=== PATIENT | male | born 1975 | race Two or more races ===

== ENCOUNTER 2020-07-04 16:58 | Emergency (ER) | payer OTHER, SELFPAY ==
[2020-07-04] VITALS (10 sets, daily range): BP systolic 143–212; BP diastolic 85–129; PULSE 68–95; RESP 12–18; TEMP 36.3–37.2; O2SAT 94–96; BMI 34.7
--- NOTE | ~2020-07-04 | CT_ITS ---
EXAMINATION: CT HEAD WITHOUT CONTRAST CLINICAL INFORMATION: Elevated blood pressure. COMPARISON: CT head 07/25/2010 TECHNIQUE: Contiguous axial imaging was performed from the skull base to vertex without intravenous administration of contrast. Coronal and sagittal reformatted images are performed at the CT scanner This CT examination was performed using dose optimization techniques as appropriate, variously including the following: *Automated exposure control *Adjustment of mA and/or kV according to patient size (this includes techniques or standardized protocols for targeted exams where dose is matched to indication/reason for exam; i.e. extremities or head) *Use of iterative reconstruction technique DLP: 741 mGy-cm FINDINGS: There is no evidence of acute intracranial hemorrhage or territorial infarction. No abnormal mass effect or midline shift is seen. [place] to white matter differentiation is well preserved. No extra-axial fluid collections are identified. The ventricles are normal in size. There is no abnormal attenuation within the brain parenchyma. The osseous structures and soft tissues are normal. There is near complete opacification of the ethmoid sinuses and frontal sinuses. There is a small air-fluid level in the right frontal sinus. The right sphenoid sinus is entirely opacified. There is an air-fluid level with mucosal thickening almost entirely opacifying the left sphenoid sinus. There is lobular mucosal thickening of the bilateral maxillary sinuses. CT/CT head/brain wo con IMPRESSION: 1. No acute intracranial abnormality. 2. Sinus disease.
--- NOTE | ~2020-07-04 | XR_ITS ---
EXAMINATION: CHEST 1 VIEW CLINICAL INFORMATION: Cough. COMPARISON: 01/20/2016. TECHNIQUE: An AP view of the chest is provided. FINDINGS: The cardiac silhouette is not enlarged. The mediastinal and hilar contours are unremarkable. There are neither pleural effusions nor pneumothoraces. There are no consolidations. The osseous structures are stable. XR/XR chest 1V IMPRESSION: No evidence for acute disease.
--- NOTE | 2020-07-04 18:15 | ECG_ITS ---
Test Reason : VOMITING Blood Pressure : / mmHG Vent. Rate : 082 BPM Atrial Rate : 082 BPM P-R Int : 160 ms QRS Dur : 096 ms QT Int : 424 ms P-R-T Axes : 048 006 036 degrees QTc Int : 495 ms Normal sinus rhythm Prolonged QT Abnormal ECG When compared with ECG of 03-FEB-2018 10:00, No significant change was found Referred By: Pan Phipps Electronically Signed By:GERA CIFUENTES
--- NOTE | 2020-07-04 18:44 | PC.NURSE ---
ALDAIR COLON AWARE OF PATIENT HIGH BLOOD PRESSURE , PATIENT WAS PUT ON EVENTS ADMINISTRATIVE ASSISTANT BY THIS PCT .
[2020-07-04 19:03] LABS: MANUAL DIFF FLAG NO
[2020-07-04 19:05] LABS: Basophils Percent Auto 0.5 % (0-2); Eosinophils Absolute Auto 0.4 X10*3/uL (0.0-0.4); Eosinophils Percent Auto 4.7 % (0-4); Hematocrit 44.9 % (42-52); Imm Gran Abs Auto 0.02 X10*3/uL (0.00-0.03); Imm Gran Pct Auto 0.3 % (0.0-0.4); Lymphocytes Absolute Auto 2.7 X10*3/uL (1.2-4.9); Lymphocytes Percent Auto 34.4 % (20-40); Mean Corpuscular HGB Conc 33.4 g/dl (31.0-36.0); Mean Corpuscular Hemoglobin 30.8 pg (27.0-33.0); Mean Corpuscular Volume 92.2 fL (80-98); Mean Platelet Volume 9.6 fL (9.4-12.4); Monocytes Absolute Auto 0.7 X10*3/uL (0.1-1.2); Monocytes Percent Auto 8.7 % (2-11); Neutrophils Absolute Auto 4.1 X10*3/uL (2.0-8.3); Neutrophils Percent Auto 51.4 % (45-73); Platelet Count 220 X10*3/uL (160-400); Red Blood Count 4.87 X10*6/uL (4.60-5.80); Red Cell Distribution Width 12.3 % (11.0-16.0); White Blood Count 7.9 X10*3/uL (4.8-10.8)
[2020-07-04 19:10] LABS: INTERNATIONAL NORM RATIO 0.9 (0.9-1.1); Prothrombin Time 11.2 SEC (10.8-13.0)
--- NOTE | 2020-07-04 19:11 | ED_ITS ---
HPI - General Adult General Chief complaint: Nausea/Vomiting/Diarrhea Stated complaint: Covid exposure,weakness Time Seen by Provider: 07/04/20 18:15 Source: patient Mode of arrival: ambulatory Limitations: no limitations History of Present Illness HPI narrative: Patient presents to ED for weakness, cough, fever, vomiting, and chills for the past 2 days. Patient states he was exposed to a friend was positive for COVID-19 virus. Patient denies any shortness of breath or chest pain. Upon triage patient found to be hypertensive. Patient admits to history of high blood pressure but has been not compliant with medication for years. Patient denies any slurred speech, loss of vision, headache, dizziness, weakn ess, numbness, or paralysis of extremities. Related Data Previous Rx's Medication Instructions Recorded lisinopril 10 mg PO DAILY #30 tab 07/04/20 Allergies Allergy/AdvReac Type Severity Reaction Status Date / Time No Known Allergies Allergy Mild NOT Verified 07/04/20 18:01 APPLICABLE Review of Systems Review of Systems: Yes all other systems are reviewed and are negative Constitutional: Constitutional: Reports as per HPI, Reports no additional constitutional complaints, Reports chills and Reports fever(s) Eyes: Eyes: Reports as per HPI, Reports no additional eye complaints, Denies blind spots, Denies blurry vision, Denies exophthalmos, Denies change in vision, Denies decreased night vision, Denies eye discharge, Denies dry eyes, Denies john aters, Denies irritation, Denies itchy eyes, Denies loss of peripheral vision, Denies loss of vision, Denies requires corrective lenses, Denies seeing flashes, Denies photophobia and Denies spots in vision ENT: Reports system reviewed and no additional complaints, except as documented and Reports as per HPI Cardiovascular: Cardiovascular: Reports as per HPI, Reports no additional cardiovascular complaints, Denies chest pain, Denies dyspnea and Denies dyspnea on exertion Respiratory: Respiratory: Reports as per HPI, Reports no additional respiratory complaints, Reports cough, Denies dyspnea and Denies dyspnea on exertion Gastrointestinal: Gastrointestinal: Reports as per HPI and Reports no additional gastrointestinal complaints Genitourinary: Genitourinary: Reports no additional male genitourinary complaints and Reports as per HPI Musculoskeletal: Musculoskeletal: Reports no additional musculoskeletal complaints and Reports as per HPI Neurologic: Reports system reviewed and no additional complaints, except as documented, Reports as per HPI and Denies loss of vision Psychiatric: Psychiatric: Reports no additional psychiatric complaints and Reports as per HPI Allergic/Immunologic: Allergic/Immunologic: Denies itchy eyes PMFSH Past Medical History Medical History (Updated 07/04/20 @ 22:52 by TONNY Ch) Hypertension Social History Social History Advance Directives: No Advance Directives Information Provided: Yes Physical Exam Vital Signs: Vital Signs: Last Vital Signs Temp 97.4 F 07/04/20 21:50 Pulse 68 07/04/20 21:50 Resp 15 07/04/20 21:50 BP 143/105 H 07/04/20 21:50 Pulse Ox 96 07/04/20 21:50 Body Mass Index 34.7 Const: General: cooperative, healthy appearing, comfortable, no acute distress, well developed, alert, awake and Physically active Orientation/consciousness: patient oriented x3 HENMT: Head: Yes normal to inspection, Yes No palpable skull fracture present, Yes normocephalic, Yes atraumatic, Yes abrasion, No Solitario's sign, No contusion, No cranial bruits, No hematoma, No occipital foramen tenderness, No palpable skull fracture, No raccoon eyes, No scalp lesion, No scalp tenderness, No Temporal artery tenderness present and No periorbital ecchymosis Eyes: General: appearance normal, both eyes and all related structures Direct Ophthalmoscopy: No photophobia Neck: Neck: Yes normal visual inspection, Yes full ROM, Yes no lymph adenopathy, Yes no meningeal signs, Yes trachea midline, Yes supple and No tender Chest: Chest palpation & inspection: normal inspection of the chest and normal palpation of entire chest wall Resp: Effort & Inspection: normal respiratory effort and able to speak in complete sentences Auscultation: clear to auscultation bilaterally Cardio: Jugular venous distension: no JVD Heart sounds: S1 normal heart sound present and S2 normal heart sound present GI: Inspection: Yes normal to inspection Palpation (GI): Soft to palpation, not firm, nontender, no guarding and not rigid : General: No CVA tenderness and Yes no CVA tenderness Back/Spine/Pelvis: Back: no CVA tenderness, No CVA tenderness and No back tenderness Skin: General skin exam: no rashes or lesions noted and elasticity normal Neuro: Other: Negative for slurred speech. Negative for facial droop. Negative pronator drift. All extremities are equal and intact 5+. Rapid hand movement intact. Negative Romberg General: patient oriented x3, no meningeal s igns and CN's II-XI intact bilaterally Cranial nerves: Yes CN's II-XII intact bilaterally Extrem: General: Yes normal to inspection and Yes full ROM Psych: Appearance: grossly normal, well kempt and not disheveled Course Course Course Narrative: Patient not in any respiratory distress but due to elevated blood pressure will do basic labs to make sure there is no hypertensive emergency. Patient will have EKG, troponin, head CT, and kidney function evaluation. Patient also had COVID swab and chest x-ray ordered. Patient also be given clonidine. NIH score 0 Reevaluation(s) Reevaluation #1: Patient's COVID swab negative. Patient EKG negative STEMI. Head CT negative for STEMI. His troponin 7.5. Blood pressure still elevated after clonidine. Will give captopril oral. Patient presently still neuro intact. Negative for any neuro deficit. Hypertensive urgency. Reevaluation #2: Patient's presently asymptomatic and neuro exam is intact. Patient's blood pressure improved. Admission was discussed due to patient's initial elevated blood pressure although presently is improved. Patient refused admission would like to be prescribed hypertensive medication follow-up with PCP. Awaiting 2nd troponin. Neuro exam is intact. Negative for any neuro focal deficit Reevaluation #3: Second troponin did not increased by 50%. Patient to be discharged with lisinopril 10 mg as discussed with Dr. Stubbs. COVID swab came back negative Medical Decision Making MDM Narrative Medical decision making narrative: Viral syndrome. Hypertension Lab Data Result diagrams: 07/04/20 18:55 07/04/20 18:55 Labs: Lab Results 07/04/20 07/04/20 07/04/20 Range/Units 18:55 18:55 18:55 WBC 7.9 (4.8-10.8) X10*3/uL RBC 4.87 (4.60-5.80) X10*6/uL Hgb 15.0 (14.0-18.0) g/dl Hct 44.9 (42-52) % MCV 92.2 (80-98) fL MCH 30.8 (27.0-33.0) pg MCHC 33.4 (31.0-36.0) g/dl RDW 12.3 (11.0-16.0) % Plt Count 220 (160-400) X10*3/uL MPV 9.6 (9.4-12.4) fL Immature Gran % (Auto) 0.3 (0.0-0.4) % Neut % (Auto) 51.4 (45-73) % Lymph % (Auto) 34.4 (20-40) % [place] % (Auto) 8.7 (2-11) % Eos % (Auto) 4.7 H (0-4) % Baso % (Auto) 0.5 (0-2) % Lymph # (Auto) 2.7 (1.2-4.9) X10*3/uL [place] # (Auto) 0.7 (0.1-1.2) X10*3/uL Eos # (Auto) 0.4 (0.0-0.4) X10*3/uL Baso # (Auto) 0.0 (0.0-0.2) X10*3/uL Abs Immat Gran (auto) 0.02 (0.00-0.03) X10*3/uL Absolute Neuts (auto) 4.1 (2.0-8.3) X10*3/uL Absolute Nucleated RBC 0.000 (0.0-0.012) X10*3/uL Nucleated RBC % (auto) 0.0 (0.0-0.2) /100WBC PT 11.2 (10.8-13.0) SEC INR 0.9 (0.9-1.1) APTT 37.5 (24.1-38.0) SEC Sodium 141 (135-145) mmol/L Potassium 4.1 (3.3-5.1) mmol/L Chloride 104 (96-108) mmol/L Carbon Dioxide 27 (22-29) mmol/L Anion Gap 14 (12-20) BUN 14 (9-16) mg/dL Creatinine 1.09 (0.5-1.4) mg/dL Estim Creat Clear Calc 109.5 Estimated GFR > 60 Random Glucose 128 H (60-115) mg/dL Calcium 8.8 (8.4-10.2) mg/dL Ferritin 165 (20-250) ng/mL Total Bilirubin 0.4 (0.0-1.0) mg/dL Direct Bilirubin < 0.2 (0.0-0.5) mg/dL AST 22 (5-37) U/L ALT 30 (0-40) U/L Alkaline Phosphatase 85 (39-117) U/L Lactate Dehydrogenase 198 (118-273) U/L Troponin I High Sens (<3.5-35.0) ng/L Total Protein 7.0 (6.5-8.0) g/dL Albumin 3.9 (3.5-5.0) g/dL Lipase 46 (8-78) U/L Procalcitonin ng/mL Coronavirus (PCR) (Negative) Influenza Type A (PCR) (Negative) Influenza Type B (PCR) (Negative) RSV RNA Qual (PCR) (Negative) 07/04/20 07/04/20 07/04/20 Range/Units 18:55 18:55 18:55 WBC (4.8-10.8) X10*3/uL RBC (4.60-5.80) X10*6/uL Hgb (14.0-18.0) g/dl Hct (42-52) % MCV (80-98) fL MCH (27.0-33.0) pg MCHC (31.0-36.0) g/dl RDW (11.0-16.0) % Plt Count (160-400) X10*3/uL MPV (9.4-12.4) fL Immature Gran % (Auto) (0.0-0.4) % Neut % (Auto) (45-73) % Lymph % (Auto) (20-40) % [place] % (Auto) (2-11) % Eos % (Auto) (0-4) % Baso % (Auto) (0-2) % Lymph # (Auto) (1.2-4.9) X10*3/uL [place] # (Auto) (0.1-1.2) X10*3/uL Eos # (Auto) (0.0-0.4) X10*3/uL Baso # (Auto) (0.0-0.2) X10*3/uL Abs Immat Gran (auto) (0.00-0.03) X10*3/uL Absolute Neuts (auto) (2.0-8.3) X10*3/uL Absolute Nucleated RBC (0.0-0.012) X10*3/uL Nucleated RBC % (auto) (0.0-0.2) /100WBC PT (10.8-13.0) SEC INR (0.9-1.1) APTT (24.1-38.0) SEC Sodium (135-145) mmol/L Potassium (3.3-5.1) mmol/L Chloride (96-108) mmol/L Carbon Dioxide (22-29) mmol/L Anion Gap (12-20) BUN (9-16) mg/dL Creatinine (0.5-1.4) mg/dL Estim Creat Clear Calc Estimated GFR Random Glucose (60-115) mg/dL Calcium (8.4-10.2) mg/dL Ferritin (20-250) ng/mL Total Bilirubin (0.0-1.0) mg/dL Direct Bilirubin (0.0-0.5) mg/dL AST (5-37) U/L ALT (0-40) U/L Alkaline Phosphatase (39-117) U/L Lactate Dehydrogenase (118-273) U/L Troponin I High Sens 7.3 (<3.5-35.0) ng/L Total Protein (6.5-8.0) g/dL Albumin (3.5-5.0) g/dL Lipase (8-78) U/L Procalcitonin 0.03 ng/mL Coronavirus (PCR) NEGATIVE (Negative) Influenza Type A (PCR) NEGATIVE (Negative) Influenza Type B (PCR) NEGATIVE (Negative) RSV RNA Qual (PCR) NEGATIVE (Negative) 07/04/20 Range/Units 21:37 WBC (4.8-10.8) X10*3/uL RBC (4.60-5.80) X10*6/uL Hgb (14.0-18.0) g/dl Hct (42-52) % MCV (80-98) fL MCH (27.0-33.0) pg MCHC (31.0-36.0) g/dl RDW (11.0-16.0) % Plt Count (160-400) X10*3/uL MPV (9.4-12.4) fL Immature Gran % (Auto) (0.0-0.4) % Neut % (Auto) (45-73) % Lymph % (Auto) (20-40) % [place] % (Auto) (2-11) % Eos % (Auto) (0-4) % Baso % (Auto) (0-2) % Lymph # (Auto) (1.2-4.9) X10*3/uL [place] # (Auto) (0.1-1.2) X10*3/uL Eos # (Auto) (0.0-0.4) X10*3/uL Baso # (Auto) (0.0-0.2) X10*3/uL Abs Immat Gran (auto) (0.00-0.03) X10*3/uL Absolute Neuts (auto) (2.0-8.3) X10*3/uL Absolute Nucleated RBC (0.0-0.012) X10*3/uL Nucleated RBC % (auto) (0.0-0.2) /100WBC PT (10.8-13.0) SEC INR (0.9-1.1) APTT (24.1-38.0) SEC Sodium (135-145) mmol/L Potassium (3.3-5.1) mmol/L Chloride (96-108) mmol/L Carbon Dioxide (22-29) mmol/L Anion Gap (12-20) BUN (9-16) mg/dL Creatinine (0.5-1.4) mg/dL Estim Creat Clear Calc Estimated GFR Random Glucose (60-115) mg/dL Calcium (8.4-10.2) mg/dL Ferritin (20-250) ng/mL Total Bilirubin (0.0-1.0) mg/dL Direct Bilirubin (0.0-0.5) mg/dL AST (5-37) U/L ALT (0-40) U/L Alkaline Phosphatase (39-117) U/L Lactate Dehydrogenase (118-273) U/L Troponin I High Sens 7.7 (<3.5-35.0) ng/L Total Protein (6.5-8.0) g/dL Albumin (3.5-5.0) g/dL Lipase (8-78) U/L Procalcitonin ng/mL Coronavirus (PCR) (Negative) Influenza Type A (PCR) (Negative) Influenza Type B (PCR) (Negative) RSV RNA Qual (PCR) (Negative) ECG Data Interpretation: Normal sinus rhythm. Urine to 160. QTC 495. Negative STEMI Discharge Plan Discharge Clinical Impression: Hypertension Patient Disposition: Home, Self-Care Instructions: Viral Syndrome (ED), Hypertension (ED) Additional Instructions: Return to the ED immediately for any headache, slurred speech, loss of vision, paralysis of extremities, weakness, dizziness, chest pain, shortness of breath, coughing up blood, calf pain, or any other concerning symptoms. Her COVID swab influenza swab came back negative. Symptoms worsen recommend quarantine or retesting in 72 hours. Please follow-up with PCP. Prescriptions: New lisinopril 10 mg tablet 10 mg PO DAILY Qty: 30 RF: 0 Print Language: Libyan
[2020-07-04 19:13] LABS: Partial Thromboplastin Time 37.5 SEC (24.1-38.0)
[2020-07-04 19:26] LABS: Alanine Aminotransferase 30 U/L (0-40); Albumin Level 3.9 g/dL (3.5-5.0); Alkaline Phosphatase 85 U/L (39-117); Anion Gap 14 (12-20); Aspartate Amino Transferase 22 U/L (5-37); Bilirubin Direct < 0.2 mg/dL (0.0-0.5); Bilirubin Total 0.4 mg/dL (0.0-1.0); Blood Urea Nitrogen 14 mg/dL (9-16); Calcium 8.8 mg/dL (8.4-10.2); Carbon Dioxide 27 mmol/L (22-29); Chloride 104 mmol/L (96-108); Creatinine Clr Calc Pharmacy 109.5; Estimated Glomerular Filt Rate > 60; Glucose Random 128 mg/dL (60-115); Lactate Dehydrogenase 198 U/L (118-273); Lipase 46 U/L (8-78); Potassium 4.1 mmol/L (3.3-5.1); Sodium 141 mmol/L (135-145)
[2020-07-04 19:30] LABS: Troponin-I High Sensitivity 7.3 ng/L (<3.5-35.0)
[2020-07-04] MEDS: cloNIDine HCL 0.2 MG TABLET PO (19:42)
[2020-07-04 19:46] LABS: Procalcitonin 0.03 ng/mL
[2020-07-04 19:47] LABS: Ferritin 165 ng/mL (20-250)
[2020-07-04 19:56] LABS: Influenza A PCR NEGATIVE (Negative); Influenza B PCR NEGATIVE (Negative); Resp Syncy Virus RNA Qual PCR NEGATIVE (Negative); SARS COV2 PCR INHOUSE NEGATIVE (Negative)
[2020-07-04] MEDS: guaiFENesin 100 MG/5 ML LIQUID PO (20:55)
[2020-07-04 22:13] LABS: Troponin-I High Sensitivity 7.7 ng/L (<3.5-35.0)
== END 2020-07-04 23:25 | disposition home or self-care (01) ==
PROVIDERS: Physician Assistant; Emergency Provider Internal Medicine
DX: B34.9 Viral infection, unspecified (principal); Z20.822 Contact with and (suspected) exposure to COVID-19; I10 Essential (primary) hypertension; R11.2 Nausea with vomiting, unspecified; R19.7 Diarrhea, unspecified
CPT/HCPCS: 0241U; 36415; 70450; 71045; 80053; 80076; 82728; 83615; 83690; 84145; 84484; 85025; 85610; 85730; 93005; 99284

== ENCOUNTER 2021-11-29 10:15 | Emergency (ER) | payer MEDICAID, SELFPAY ==
--- NOTE | ~2021-11-29 | XR_ITS ---
EXAMINATION: XR FOOT, RIGHT XR ANKLE, RIGHT CLINICAL INFORMATION: Pain. COMPARISON: None TECHNIQUE: 3 views of the right foot and 3 views of the right ankle. FINDINGS: RIGHT ANKLE: There are surgical pins in the medial and lateral malleoli and anterior lateral calcaneus. There are 3 screws in the distal tibia/posterior malleolus. Orthopedic hardware appears intact. No evidence of loosening is seen. There is no acute fracture or dislocation. There is posttraumatic arthritis at the ankle joint. Soft tissues are unremarkable. RIGHT FOOT: Orthopedic pin in the anterior lateral calcaneus. No fracture or dislocation. Normal joint spaces. Calcaneal spurs. Normal soft tissues. XR/XR foot RT min 3V IMPRESSION: Extensive orthopedic hardware in the ankle and calcaneus. 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 Calcaneal spurs.
--- NOTE | ~2021-11-29 | XR_ITS ---
EXAMINATION: XR FOOT, RIGHT XR ANKLE, RIGHT CLINICAL INFORMATION: Pain. COMPARISON: None TECHNIQUE: 3 views of the right foot and 3 views of the right ankle. FINDINGS: RIGHT ANKLE: There are surgical pins in the medial and lateral malleoli and anterior lateral calcaneus. There are 3 screws in the distal tibia/posterior malleolus. Orthopedic hardware appears intact. No evidence of loosening is seen. There is no acute fracture or dislocation. There is posttraumatic arthritis at the ankle joint. Soft tissues are unremarkable. RIGHT FOOT: Orthopedic pin in the anterior lateral calcaneus. No fracture or dislocation. Normal joint spaces. Calcaneal spurs. Normal soft tissues. XR/XR ankle RT min 3V IMPRESSION: Extensive orthopedic hardware in the ankle and calcaneus. 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 Calcaneal spurs.
[2021-11-29 10:30] VITALS: BP 196/142; PULSE 80; RESP 16; TEMP 36.4; O2SAT 96; BMI 31.5
[2021-11-29 12:13] VITALS: BP 214/137; PULSE 73; RESP 16; TEMP 36.6; O2SAT 97
--- NOTE | 2021-11-29 12:44 | ECG_ITS ---
Test Reason : extremity pain Blood Pressure : / mmHG Vent. Rate : 076 BPM Atrial Rate : 076 BPM P-R Int : 162 ms QRS Dur : 104 ms QT Int : 432 ms P-R-T Axes : 039 -04 025 degrees QTc Int : 486 ms Normal sinus rhythm Moderate voltage criteria for LVH, may be normal variant ( R in aVL , Cutler product ) Nonspecific T wave abnormality Prolonged QT Abnormal ECG No previous ECGs available Referred By: Shana Watson Electronically Signed By:MIREYA MARK
--- NOTE | 2021-11-29 13:02 | ED.EXTPRO ---
HPI - Extremity Problem General Chief complaint: Extremity Problem Stated complaint: R leg pain Time Seen by Provider: 11/29/21 12:26 Source: patient Mode of arrival: ambulatory Limitations: no limitations History of Present Illness MD Complaint: extremity pain Onset (ago): week(s) (2) Pain Consistency: intermittent Location: right, toe and other (ankle/foot) Quality: aching and dull Radiation: none Relieving factors: immobilization Exacerbating factors: weight bearing, walking and rest Associated symptoms: denies other symptoms Context: other (hasn't been on BP meds in years) Related Data Previous Rx's Medication Instructions Recorded amlodipine 10 mg tablet 10 mg PO DAILY #30 tabs 11/29/21 hydrocodone 5 mg-acetaminophen 325 1 tab PO Q6H PRN pain #10 tabs 11/29/21 mg tablet prednisone 20 mg tablet 20 mg PO DAILY 4 days #4 tabs 11/29/21 Allergies Allergy/AdvReac Type Severity Reaction Status Date / Time No Known Allergies Allergy Verified 11/29/21 10:30 Review of Systems Review of Systems: Constitutional : No Fever, No Chills ENT/Mouth : No Ear Pain, No Hoarseness, No sore throat Eyes: No Eye Pain, No Swelling, No Redness, No Foreign Body Cardiovascular : No Chest Pain, No SOB Respiratory : No Cough, No Dyspnea Gastrointestinal : No Nausea, No Vomiting, No Diarrhea, No abdominal Pain Genitourinary : No Dysuria, No Hematuria Musculoskeletal : positive joint pain, No Myalgias, pos Joint Swelling Skin : No Skin lacerations, No rash Neuro : No Weakness, No Numbness, No Loss of Consciousness, No Dizziness, No Headache Psych : No Anxiety/Panic, No Depression Heme/Lymph: no easy bruising, no Lymphadenopathy Endocrine : No Polyuria, No Polydipsia All other systems reviewed and are negative PMFSH Past Medical History Attestation statement: The following information was validated with the patient. Medical History No pertinent past medical history Social History Social History Patient Tobacco Use Status: Current everyday Tobacco user Substance Use Type: Crack/Cocaine Advance Directives: No Advance Directives Information Provided: Yes Physical Exam Vital Signs: Vital Signs: Last Vital Signs Temp 97.9 F 11/29/21 12:13 Pulse 75 11/29/21 14:44 Resp 16 11/29/21 14:08 BP 189/121 H 11/29/21 14:43 Pulse Ox 96 11/29/21 14:08 O2 Del Method 11/29/21 14:08 BMI result Body Mass Index 31.5 Appearance: Alert. Oriented X3. No acute distress. Eyes: Pupils equal, round and reactive to light. ENT: Pharynx normal. Neck: Normal inspection. Neck supple. CVS: Normal heart rate and rhythm. Pulses normal. Respiratory: No respiratory distress. Breath sounds normal. Abdomen: Soft and nontender. Skin: Skin warm and dry. Normal skin color. Normal skin turgor. Extremities: No lower extremity edema. No calf ttp R toe ttp at MCP mild erythema mild warmth, mild joint pain and swelling noted around the ankle itself but full ROM and no warmth or erythema Neuro: Oriented X 3. No motor deficit. No sensory deficit. Course Course Course Narrative: will start on pain medications steroids and refer to PCP MDM - Extremity (Nontraumatic) MDM Narrative Medical decision making narrative: 46 yo male with no known PMH who comes to the ED without seeing a doctor in several years he has toe pain and ankle pain no signs of infection ankle pain is chronic - suspect R great toe is gout - will obtain labs and xray. The patient also has HTN suspect this is chronic will start on amlodipine as he uses cocaine occasionally and HCTZ with gout is not advised. Lab Data Result diagrams: 11/29/21 13:33 11/29/21 13:33 Labs: Lab Results 11/29/21 11/29/21 Range/Units 13:33 13:33 WBC 9.7 (4.8-10.8) X10*3/uL RBC 5.41 (4.60-5.80) X10*6/uL Hgb 16.5 (14.0-18.0) g/dl Hct 49.7 (42.0-52.0) % MCV 91.9 (80.0-98.0) fL MCH 30.5 (27.0-33.0) pg MCHC 33.2 (31.0-36.0) g/dl RDW 12.5 (11.0-16.0) % Plt Count 233 (160-400) X10*3/uL MPV 9.7 (9.4-12.4) fL Immature Gran % (Auto) 0.3 (0.0-0.4) % Neut % (Auto) 57.7 (45-73) % Lymph % (Auto) 30.3 (20-40) % [place] % (Auto) 8.5 (2-11) % Eos % (Auto) 2.8 (0-4) % Baso % (Auto) 0.4 (0-2) % Lymph # (Auto) 3.0 (1.2-4.9) X10*3/uL [place] # (Auto) 0.8 (0.1-1.2) X10*3/uL Eos # (Auto) 0.3 (0.0-0.4) X10*3/uL Baso # (Auto) 0.0 (0.0-0.2) X10*3/uL Abs Immat Gran (auto) 0.03 (0.00-0.03) X10*3/uL Absolute Neuts (auto) 5.6 (2.0-8.3) x10*3/uL Absolute Nucleated RBC 0.000 (0.0-0.012) X10*3/uL Nucleated RBC % (auto) 0.0 (0.0-0.2) /100WBC Sodium 140 (135-145) mmol/L Potassium 4.3 (3.3-5.1) mmol/L Chloride 101 (96-108) mmol/L Carbon Dioxide 28 (22-29) mmol/L Anion Gap 15 (12-20) BUN 15 (9-16) mg/dL Creatinine 1.11 (0.5-1.4) mg/dL Estim Creat Clear Calc 100.5 Estimated GFR > 60 Random Glucose 118 H (60-115) mg/dL Uric Acid 8.2 H (3.4-7.0) mg/dL Calcium 8.7 (8.4-10.2) mg/dL Magnesium 2.1 (1.6-2.6) mg/dL Total Bilirubin 0.3 (0.0-1.0) mg/dL Direct Bilirubin 0.2 (0.0-0.5) mg/dL AST 16 (5-37) U/L ALT 20 (0-40) U/L Alkaline Phosphatase 79 (39-117) U/L Total Protein 7.4 (6.5-8.0) g/dL Albumin 4.0 (3.5-5.0) g/dL ECG Data Attestation EKG: I personally reviewed and interpreted this ECG as follows: ECG interpretation date: 11/29/21 ECG interpretation time: 13:36 Interpretation: Rate: 76 Rhythm: NSR [place]: leftl LVH Normal P waves. Normal JAZMYN. Normal QRS complex. ST T wave : normal no LI qTC: normal prior studies: no acute ischemia The study has been interpreted contemporaneously by me. . Discharge Plan Discharge Clinical Impression: HTN (hypertension) Qualifiers: Hypertension type: unspecified Qualified Code(s): I10 - Essential (primary) hypertension Gout Qualifiers: Gout site: toe Gout etiology: unspecified cause Chronicity: acute Laterality: right Qualified Code(s): M10.9 - Gout, unspecified Patient Disposition: Home, Self-Care Instructions: Gout (ED), Hypertension (ED) Additional Instructions: return to ED for any worsening symptoms or concerns DIABETES TEST PENDING YOU NEED TO GET A PCP RIGHT ANKLE: There are surgical pins in the medial and lateral malleoli and anterior lateral calcaneus. There are 3 screws in the distal tibia/posterior malleolus. Orthopedic hardware appears intact. No evidence of loosening is seen. There is no acute fracture or dislocation. There is posttraumatic arthritis at the ankle joint. Soft tissues are unremarkable. RIGHT FOOT: Orthopedic pin in the anterior lateral calcaneus. No fracture or dislocation. Normal joint spaces. Calcaneal spurs. Normal soft tissues. XR/XR ankle RT min 3V IMPRESSION: Extensive orthopedic hardware in the ankle and calcaneus. 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 Calcaneal spurs. Prescriptions: New hydrocodone-acetaminophen 5-325 mg tablet 1 tab PO Q6H PRN (Reason: pain) Qty: 10 0RF Rx Instructions: partial fill okay; Partial Fill upon patient request. prednisone 20 mg tablet 20 mg PO DAILY 4 Days Qty: 4 0RF amlodipine 10 mg tablet 10 mg PO DAILY Qty: 30 1RF Stand Alone Forms: Work/School Release Print Language: Occitan
[2021-11-29] MEDS: amLODIPine Besylate 5 MG TABLET PO (13:25)
[2021-11-29] MEDS: Morphine Sulfate Immed Release 15 MG TABLET PO (13:25)
[2021-11-29 13:27] VITALS: BP 203/137; PULSE 74; RESP 16; O2SAT 97
[2021-11-29 13:44] LABS: MANUAL DIFF FLAG NO
[2021-11-29 13:50] LABS: Basophils Percent Auto 0.4 % (0-2); Eosinophils Absolute Auto 0.3 X10*3/uL (0.0-0.4); Eosinophils Percent Auto 2.8 % (0-4); Hematocrit 49.7 % (42.0-52.0); Hemoglobin 16.5 g/dl (14.0-18.0); Imm Gran Abs Auto 0.03 X10*3/uL (0.00-0.03); Imm Gran Pct Auto 0.3 % (0.0-0.4); Lymphocytes Percent Auto 30.3 % (20-40); Mean Corpuscular HGB Conc 33.2 g/dl (31.0-36.0); Mean Corpuscular Hemoglobin 30.5 pg (27.0-33.0); Mean Corpuscular Volume 91.9 fL (80.0-98.0); Mean Platelet Volume 9.7 fL (9.4-12.4); Monocytes Absolute Auto 0.8 X10*3/uL (0.1-1.2); Monocytes Percent Auto 8.5 % (2-11); Neutrophils Absolute Auto 5.6 x10*3/uL (2.0-8.3); Neutrophils Percent Auto 57.7 % (45-73); Platelet Count 233 X10*3/uL (160-400); Red Blood Count 5.41 X10*6/uL (4.60-5.80); Red Cell Distribution Width 12.5 % (11.0-16.0); White Blood Count 9.7 X10*3/uL (4.8-10.8)
[2021-11-29 14:01] LABS: Alanine Aminotransferase 20 U/L (0-40); Alkaline Phosphatase 79 U/L (39-117); Anion Gap 15 (12-20); Aspartate Amino Transferase 16 U/L (5-37); Bilirubin Direct 0.2 mg/dL (0.0-0.5); Bilirubin Total 0.3 mg/dL (0.0-1.0); Blood Urea Nitrogen 15 mg/dL (9-16); Calcium 8.7 mg/dL (8.4-10.2); Carbon Dioxide 28 mmol/L (22-29); Chloride 101 mmol/L (96-108); Creatinine Clr Calc Pharmacy 100.5; Estimated Glomerular Filt Rate > 60; Glucose Random 118 mg/dL (60-115); Magnesium 2.1 mg/dL (1.6-2.6); Potassium 4.3 mmol/L (3.3-5.1); Sodium 140 mmol/L (135-145); Total Protein 7.4 g/dL (6.5-8.0); Uric Acid 8.2 mg/dL (3.4-7.0)
[2021-11-29 14:08] VITALS: BP 193/127; PULSE 75; RESP 16; O2SAT 96
[2021-11-29 14:43] VITALS: BP 189/121
[2021-11-29 14:44] VITALS: PULSE 75
[2021-11-29 15:57] LABS: Estimated Average Glucose 114 mg/dL; Hemoglobin A1c % 5.6 %
== END 2021-11-29 16:01 | disposition home or self-care (01) ==
PROVIDERS: Emergency Provider Emergency Medicine
DX: I10 Essential (primary) hypertension (principal); M10.9 Gout, unspecified; M79.661 Pain in right lower leg; F17.200 Nicotine dependence, unspecified, uncomplicated
CPT/HCPCS: 36415; 73610; 73630; 80048; 80076; 83036; 83735; 84550; 85025; 93005; 99283; 99284

== ENCOUNTER 2023-03-28 07:17 | Emergency (ER) | payer MEDICAID, SELFPAY ==
--- NOTE | ~2023-03-28 | XR_ITS ---
EXAMINATION: XR CHEST CLINICAL INFORMATION: Short of breath COMPARISON: Chest x-ray July 04, 2020 and January 20, 2016 TECHNIQUE: Frontal view of the chest was obtained. FINDINGS: Cardiac silhouette is normal in size. The lungs are adequately aerated. Mild prominence of the right hilar region, however, this appears similar to 2016 radiograph and therefore likely represents normal vascular structures. No large pleural effusion. No pneumothorax. XR/XR chest 1V IMPRESSION: Stable examination demonstrating no acute pulmonary pathology.
[2023-03-28 07:21] VITALS: BP 172/119; PULSE 90; RESP 20; TEMP 36.4; O2SAT 95; BMI 31.6
--- NOTE | 2023-03-28 07:26 | ED.URI ---
HPI - URI/Sore Throat General Chief Complaint: Upper Respiratory Symptoms Stated Complaint: fever running nose congestion cough Time Seen by Provider: 03/28/23 07:35 Source: patient Mode of arrival: ambulatory Limitations: no limitations History of Present Illness HPI Narrative: This is a 47-year-old male presenting to the emergency department fatigue, malaise, myalgia, congestion, frontal headache, fevers, cough that is productive in nature for the past week. Patient reports chest discomfort with cough. Patient tells me he has no known sick contacts. Denies chest pain without cough or at rest, shortness of breath, nausea, vomiting, abdominal pain, headache, vision changes, dizziness, weakness. Related Data Previous Rx's Medication Instructions Recorded lisinopril 10 mg tablet 10 mg PO DAILY #30 tabs 07/04/20 amlodipine 10 mg tablet 10 mg PO DAILY #30 tabs 11/29/21 hydrocodone 5 mg-acetaminophen 325 1 tab PO Q6H PRN pain #10 tabs 11/29/21 mg tablet prednisone 20 mg tablet 20 mg PO DAILY 4 days #4 tabs 11/29/21 albuterol sulfate 90 mcg/actuation 2 inh inhalation Q4-6H PRN 03/28/23 breath activated powder inhaler shortness of breath or wheezing #1 ea prednisone 20 mg tablet 40 mg (2 x 20 mg) PO DAILY 5 days 03/28/23 #10 tabs Allergies Allergy/AdvReac Type Severity Reaction Status Date / Time No Known Allergies Allergy Mild NOT Verified 02/23/22 13:07 APPLICABLE Review of Systems Review of Systems: Constitutional : No Weight loss, No Fever, No Chills, No Fatigue, No Malaise ENT/Mouth : No sore throat, No Rhinorrhea Eyes: No Eye Pain, No Swelling, No Redness Cardiovascular : No Chest Pain, No SOB, No Dyspnea on Exertion, No Orthopnea, No Edema, No Palpitations Respiratory : No Cough, No Sputum, No Wheezing Gastrointestinal : No Nausea, No Vomiting, No Diarrhea, No Constipation, No abdominal Pain, No Hematochezia, No Melena Genitourinary : No Dysuria, No Urinary Frequency, No Hematuria, Musculoskeletal : No joint pain, No Myalgias, No Joint Swelling Skin : No Skin Lesions, No rash Neuro : No Weakness, No Numbness, No Dizziness, No Headache Psych : No Anxiety/Panic, No Depression All other systems reviewed and are negative Yes all other systems are reviewed and are negative [facility] Past Medical History Attestation statement: The following information was validated with the patient. Source: old records reviewed and nursing notes reviewed Medical History Chronic ankle pain Polysubstance abuse No pertinent past medical history Hypertension Social History Social History Patient Tobacco Use Status: Current everyday Tobacco user Substance Use Type: Crack/Cocaine Advance Directives: No Advance Directives Information Provided: No Physical Exam Vital Signs: Vital Signs: Last Vital Signs Temp 98.0 F 03/28/23 08:25 Pulse 83 03/28/23 08:25 Resp 18 03/28/23 08:25 BP 171/113 H 03/28/23 08:43 Pulse Ox 96 03/28/23 08:25 O2 Del Method Room Air 03/28/23 08:25 BMI result Body Mass Index 31.6 Hypertensive however has not taken his amlodipine or lisinopril Appearance: Alert.? Oriented X3.? No acute distress.? Head: Normocephalic, atraumatic, no step-offs or deformities Eyes: Pupils equal, round and reactive to light.? ENT: Pharynx normal.? Neck: Normal inspection.? Neck supple.? CVS: Normal heart rate and rhythm.? Pulses normal.? Respiratory: No respiratory distress.? Breath sounds normal.? Abdomen: Soft and nontender.? Skin: Skin warm and dry.? Normal skin color.? Normal skin turgor.? Extremities: No lower extremity edema.? No calf ttp. 5/5 strength to bilateral upper and lower extremities Neuro: Oriented X 3.? No motor deficit.? No sensory deficit. CN 2-12 intact Course Reevaluation(s) Reevaluation #1: Chest x-ray stable examination no acute pulmonary pathology. Serology positive for RSV likely causative agent to patient's symptoms. EKG nonischemic. Patient's vital signs stable. Blood pressure meds have been given. Will repeat prior to discharge. Educated patient on diagnosis and treatment plan, answered all question, patient verbalizes understanding. At this time patient will be discharged home, advised to return with new or worsening symptoms. Educated on worrisome signs and symptoms and when to return. At this time I feel comfortable discharge home. Patient was given amlodipine and discharged home blood pressure around the same, patient states this is his blood pressure always. Advised him to follow-up with PCP for blood pressure management. No signs of hypertensive urgency, emergency. Patient is stable, no chest pain at this time only with cough. Time: 08:49 Medications Administered Discontinued Medications Generic Name Dose Route Start Last Admin Trade Name Arlene PRN Reason Stop Dose Admin Acetaminophen 650 mg 03/28/23 08:28 03/28/23 08:39 Acetaminophen 325 Mg Tablet PO 03/28/23 08:29 650 mg ONCE ONE Administration Amlodipine Besylate 10 mg 03/28/23 07:30 03/28/23 07:34 Amlodipine Besylate 10 Mg Tablet PO 03/28/23 07:31 10 mg ONCE ONE Administration Protocol Medical Decision Making Medical Decision Making [facility] Narrative: 47-year-old male presents with headache, congestion, fatigue, malaise, cough, chest discomfort with cough for the past week and half. Multiple sick contacts at home Physical examination benign This is likely viral illness versus bronchitis. Unlikely pneumonia, pulmonary embolism, ACS, acute respiratory distress, dissection. Patient is noted to be hypertensive likely secondary to non med compliance/not taking his meds this morning. Will give him home meds here. No signs of hypertensive urgency, emergency, stroke Plan at this time viral testing, x-ray. Will give amlodipine Differential Diagnosis Differential Diagnoses: The differential diagnosis associated with the presentation includes This is likely viral illness versus bronchitis. Unlikely pneumonia, pulmonary embolism, ACS, acute respiratory distress, dissection. Patient is noted to be hypertensive likely secondary to non med compliance/not taking his meds this morning. Will give him home meds here. No signs of hypertensive urgency, emergency, stroke Admission/Observation Consideration of admission/observation: Escalation of care including admission/observation considered [facility] Lab Data [facility] Lab Attestation statement: I reviewed the patient's lab results. Labs: Lab Results 03/28/23 Range/Units 07:29 Influenza Type A (PCR) NEGATIVE (Negative) Influenza Type B (PCR) NEGATIVE (Negative) RSV RNA Qual (PCR) POSITIVE A (Negative) SARS-CoV-2 RNA (RT-PCR) NEGATIVE (Negative) Independent Interpretation I performed an independent interpretation of an: Plain X-Ray Radiology Impression Discussion of test interpretation with radiology: I have reviewed the radiologist's reading. Chronic Conditions Patient?s care impacted by: Hypertension and Other (obesity ) Discharge Plan Discharge Clinical Impression: Upper respiratory infection, Respiratory syncytial virus (RSV) Patient Disposition: Home, Self-Care Instructions: Respiratory Syncytial Virus (ED), Upper Respiratory Infection (ED) Additional Instructions: Take your medications as prescribed. If you were prescribed antibiotics today, it is important that you take your medication to their entirety, do not skip any doses, do not finish them early. Follow-up with your primary care provider this week. Return to the emergency department with new or worsening symptoms. Such as fevers, chills, chest pain, shortness of breath, nausea, vomiting, dizziness, headache, vision changes, lethargy In case of emergency call 911 Prescriptions: New prednisone 20 mg tablet 40 mg PO DAILY 5 Days Qty: 10 0RF albuterol sulfate 90 mcg/actuation aerosol powdr breath activated 2 inh inhalation Q4-6H PRN (Reason: shortness of breath or wheezing) Qty: 1 0RF No Action lisinopril 10 mg tablet 10 mg PO DAILY Qty: 30 0RF hydrocodone-acetaminophen 5-325 mg tablet 1 tab PO Q6H PRN (Reason: pain) Qty: 10 0RF Rx Instructions: partial fill okay; Partial Fill upon patient request. prednisone 20 mg tablet 20 mg PO DAILY 4 Days Qty: 4 0RF amlodipine 10 mg tablet 10 mg PO DAILY Qty: 30 1RF Referrals: Ashley Stewart MD [Primary Care Provider] - 2 days Stand Alone Forms: Work/School Release Interventions: ED Discharge Assessment Last Done: 03/28/23 08:47 Discharge Date/Time: 03/28/23 08:47
[2023-03-28] MEDS: amLODIPine Besylate 10 MG TABLET PO (07:34)
[2023-03-28 08:14] LABS: Influenza A PCR NEGATIVE (Negative); Influenza B PCR NEGATIVE (Negative); Resp Syncy Virus RNA Qual PCR POSITIVE (Negative); SARS COV2 PCR INHOUSE NEGATIVE (Negative)
[2023-03-28 08:25] VITALS: BP 176/123; PULSE 83; RESP 18; TEMP 36.7; O2SAT 96
[2023-03-28] MEDS: Acetaminophen 325 MG TABLET 650 MG PO (08:39)
[2023-03-28 08:43] VITALS: BP 171/113
--- NOTE | 2023-03-28 08:46 | PC.NURSE ---
rechecked bp - pt remains hypertensive. denies any symptoms. states his blood pressure is always this high even with the medications. encouraged to follow up with his primary care provider regarding his hypertension.
== END 2023-03-28 08:47 | disposition home or self-care (01) ==
PROVIDERS: Physician Assistant; Emergency Provider Student in an Organized Health Care Education/Training Program; PCP Internal Medicine
DX: R50.9 Fever, unspecified (principal); B97.4 Respiratory syncytial virus as the cause of diseases classified elsewhere; M79.10 Myalgia, unspecified site; R05.9 Cough, unspecified; Z20.822 Contact with and (suspected) exposure to COVID-19; Z20.828 Contact with and (suspected) exposure to other viral communicable diseases
CPT/HCPCS: 0241U; 71045; 99283

== ENCOUNTER 2023-04-11 00:38 | Emergency (ER) | payer MEDICAID, SELFPAY ==
--- NOTE | ~2023-04-11 | XR_ITS ---
EXAMINATION: XR CHEST CLINICAL INFORMATION: Shortness of breath. COMPARISON: 03/28/2023. TECHNIQUE: 2 views of the chest were obtained. FINDINGS: The cardiomediastinal silhouette is stable. There is no focal lung consolidation or pleural effusion. The bony structures and soft tissues are unremarkable. XR/XR chest 2V IMPRESSION: No active cardiopulmonary disease.
[2023-04-11 00:46] VITALS: BP 189/133; PULSE 94; RESP 20; TEMP 36.8; O2SAT 97; BMI 32.3
--- NOTE | 2023-04-11 01:10 | ECG_ITS ---
Test Reason : HYPERTENSION Blood Pressure : / mmHG Vent. Rate : 088 BPM Atrial Rate : 088 BPM P-R Int : 164 ms QRS Dur : 094 ms QT Int : 394 ms P-R-T Axes : 053 008 025 degrees QTc Int : 476 ms Normal sinus rhythm Normal ECG No significant changes when compared with the previous EKG of 04 july 2020 Referred By: Generic ED Physician Electronically Signed By:GERA CIFUENTES
--- NOTE | 2023-04-11 01:13 | ED_ITS ---
HPI - General Adult General Chief complaint: General Medical Stated complaint: Flu like symptoms Time Seen by Provider: 04/11/23 01:13 Source: patient Mode of arrival: ambulatory History of Present Illness HPI narrative: 47-year-old male who presents with nasal congestion, subjective fevers, body aches and headaches. Patient states he has also run out of his blood pressure medication. He denies any chest pain Related Data Previous Rx's Medication Instructions Recorded lisinopril 10 mg tablet 10 mg PO DAILY #30 tabs 07/04/20 amlodipine 10 mg tablet 10 mg PO DAILY #30 tabs 11/29/21 hydrocodone 5 mg-acetaminophen 325 1 tab PO Q6H PRN pain #10 tabs 11/29/21 mg tablet prednisone 20 mg tablet 20 mg PO DAILY 4 days #4 tabs 11/29/21 albuterol sulfate 90 mcg/actuation 2 inh inhalation Q4-6H PRN 03/28/23 breath activated powder inhaler shortness of breath or wheezing #1 ea prednisone 20 mg tablet 40 mg (2 x 20 mg) PO DAILY 5 days 03/28/23 #10 tabs hydrochlorothiazide 12.5 mg tablet 12.5 mg PO DAILY #7 tabs 04/11/23 losartan 100 mg tablet 100 mg PO DAILY #7 tabs 04/11/23 Allergies Allergy/AdvReac Type Severity Reaction Status Date / Time No Known Allergies Allergy Mild NOT Verified 02/23/22 13:07 APPLICABLE Review of Systems Review of Systems: Pertinent positives and negatives as stated in HPI PMFSH Past Medical History Source: nursing notes reviewed Medical History Chronic ankle pain Polysubstance abuse No pertinent past medical history Hypertension Social History Social History Patient Tobacco Use Status: Current everyday Tobacco user Substance Use Type: Crack/Cocaine Advance Directives: No Advance Directives Information Provided: No Physical Exam ED Vital Signs: Vital Signs - 24 hr 04/11/23 00:46 Temperature 98.2 F Pulse Rate 94 Respiratory Rate 20 Blood Pressure 189/133 H Pulse Oximetry 97 Oxygen Delivery Method Room Air BMI result Body Mass Index 32.3 VITAL SIGNS: Reviewed. GENERAL: Well developed, well nourished, in no acute distress. HEAD: Normocephalic/atraumatic EYES: PERRLA, EOMI EARS: RIGHT- Ext canals without abnormality, TMs non-bulging and non- erythematous; LEFT- Ext canals without abnormality, TMs non-bulging but erythematous NOSE: Nares patent bilateral OROPHARYNX: no oral lesions noted, posterior pharynx clear and non-erythematous without noted tonsillar enlargement/erythema/exudates NECK: Supple, no adenopathy LUNGS: Normal breath sounds. No adventitious sounds or accessory muscle use. SpO2<97> CARDIOVASCULAR: Regular rate and rhythm without noted murmurs ABDOMEN: Soft, non-tender, non-distended with bowel sounds. MUSCULOSKELETAL: No tenderness, deformities, or effusions noted on gross inspection. EXTREMITIES: No cyanosis, clubbing or edema. SKIN: Inspection of the skin reveals no rashes NEUROLOGIC: Alert and oriented x 4. Strength and sensation to light touch were grossly intact x 4. Medications Administered Discontinued Medications Generic Name Dose Route Start Last Admin Trade Name Freq PRN Reason Stop Dose Admin Hydrochlorothiazide 12.5 mg 04/11/23 01:13 04/11/23 01:55 Hydrochlorothiazide 12.5 Mg Tablet PO 04/11/23 01:14 12.5 mg ONCE ONE Administration Protocol Losartan Potassium 100 mg 04/11/23 01:13 04/11/23 01:55 Losartan Potassium 50 Mg Tablet PO 04/11/23 01:14 100 mg ONCE ONE Administration Protocol Medical Decision Making Medical Decision Making [facility] Narrative: 47-year-old male with history and clinical presentation, DDX: Uncontrolled hypertension secondary to poor medication compliance, viral syndrome likely secondary to COVID-19 EKG does not show any acute findings, patient has no symptoms of chest pain or focal deficits or neurologic complaints. Review viral testing is positive for COVID-19. Chest x-ray negative for infiltrate or venous congestion and otherwise my interpretation is in agreement with radiology's impression. Patient received blood pressure medication here in the emergency room. Differential Diagnosis Differential Diagnoses: The differential diagnosis associated with the presentation includes Please see the discussion above Admission/Observation Consideration of admission/observation: Escalation of care including admission/observation considered Please see the discussion above Lab Data [facility] Lab Attestation statement: I reviewed the patient's lab results. Please see the discussion above Labs: Lab Results 04/11/23 Range/Units 01:16 COVID-19 (NADEEN) Positive A (Negative) COVID-19 Clin Com See Note Influenza Type A (GEORGE) Negative (Negative) Influenza Type B (GEORGE) Negative (Negative) Influenza A & B Note See Note Independent Interpretation I performed an independent interpretation of an: EKG Interpretation: Normal sinus rhythm, HR-88, no STEMI, IA/QRS/QTC is within normal limits. Radiology Impression Discussion of test interpretation with radiology: I have reviewed the radiologist's reading. Radiologist Impression: Please see the discussion above External Record Review External record reviewed: Outpatient record and Prior outpatient labs Chronic Conditions Patient?s care impacted by: Hypertension Critical Care Time Critical Care Time Critical Care Time: Yes Total Critical Care Time: 30 Attestation: I personally attest to this time spent taking care of the patient. Discharge Plan Discharge Clinical Impression: Uncontrolled hypertension, Viral syndrome, COVID-19 Patient Disposition: Home, Self-Care Instructions: Viral Syndrome (ED), DASH Eating Plan (ED), Hypertension (ED), COVID-19 (Coronavirus Disease 2019) (ED) Additional Instructions: 1. You must isolate for the next 5 days due to being COVID-19 positive 2. I have sent a prescription for 1 week's worth blood pressure medication but you should follow-up with your primary care doctor by calling the office 1st thing in the morning. Return to the ER for any worsening symptoms. Prescriptions: New losartan 100 mg tablet 100 mg PO DAILY Qty: 7 0RF hydrochlorothiazide 12.5 mg tablet 12.5 mg PO DAILY Qty: 7 0RF No Action lisinopril 10 mg tablet 10 mg PO DAILY Qty: 30 0RF hydrocodone-acetaminophen 5-325 mg tablet 1 tab PO Q6H PRN (Reason: pain) Qty: 10 0RF Rx Instructions: partial fill okay; Partial Fill upon patient request. prednisone 20 mg tablet 20 mg PO DAILY 4 Days Qty: 4 0RF amlodipine 10 mg tablet 10 mg PO DAILY Qty: 30 1RF prednisone 20 mg tablet 40 mg PO DAILY 5 Days Qty: 10 0RF albuterol sulfate 90 mcg/actuation aerosol powdr breath activated 2 inh inhalation Q4-6H PRN (Reason: shortness of breath or wheezing) Qty: 1 0RF Referrals: [place] [Primary Care Provider] - Stand Alone Forms: Work/School Release
[2023-04-11 01:44] LABS: COVID-19 Test Positive (Negative); IDNOW Serial# 58CA691E
[2023-04-11] MEDS: Losartan Potassium 50 MG TABLET 100 MG PO (01:55)
[2023-04-11] MEDS: hydroCHLOROthiazide 12.5 MG TABLET PO (01:55)
[2023-04-11 01:58] LABS: IDNOW Serial# 6674DD1D; Influenza A Negative (Negative); Influenza B2 Negative (Negative)
[2023-04-11 03:14] VITALS: BP 194/128; PULSE 74; RESP 14; TEMP 36.6; O2SAT 95
== END 2023-04-11 03:23 | disposition home or self-care (01) ==
PROVIDERS: Emergency Provider Student in an Organized Health Care Education/Training Program
DX: U07.1 COVID-19 (principal); R50.9 Fever, unspecified; M79.10 Myalgia, unspecified site; R05.9 Cough, unspecified; R09.81 Nasal congestion; I10 Essential (primary) hypertension
CPT/HCPCS: 71046; 87502; 87635; 93005; 99283; 99284

== ENCOUNTER → 2023-04-11 01:10 | Outpatient (BNV) | payer MEDICAID, SELFPAY | PROVIDERS: Emergency Provider Student in an Organized Health Care Education/Training Program; Visit Provider Internal Medicine | DX: I10 Essential (primary) hypertension (principal) | CPT/HCPCS: 93010 ==

== ENCOUNTER 2023-09-04 18:12 | Emergency (ER) | payer MEDICAID, SELFPAY | END 2023-09-04 20:51 | disposition left against medical advice (07) | PROVIDERS: Emergency Provider Emergency Medicine | DX: R05.9 Cough, unspecified (principal); R50.9 Fever, unspecified; Z53.21 Procedure and treatment not carried out due to patient leaving prior to being seen by health care provider ==

== ENCOUNTER 2023-11-04 23:20 | Emergency (ER) | payer MEDICAID, SELFPAY ==
--- NOTE | ~2023-11-04 | XR_ITS ---
EXAMINATION: XR KNEE, RIGHT CLINICAL INFORMATION: Pain. COMPARISON: None available. TECHNIQUE: AP and lateral views of the right knee. FINDINGS: Small marginal osteophytes at the medial and patellofemoral compartments. Joint spaces are normal. Small joint effusion. Mild soft tissue swelling. Bone mineralization is normal. No fracture or malalignment. No subcutaneous gas. XR/XR knee RT 2V IMPRESSION: Minimal medial and patellofemoral compartment osteoarthritis. Small joint effusion. No acute osseous findings.
[2023-11-04 23:53] VITALS: BP 152/97; PULSE 97; RESP 18; TEMP 36.8; O2SAT 95; BMI 33.0
[2023-11-05 00:06] LABS: MANUAL DIFF FLAG NO
[2023-11-05 00:10] LABS: Basophils Percent Auto 0.3 % (0-2); Eosinophils Absolute Auto 0.2 X10*3/uL (0.0-0.4); Eosinophils Percent Auto 2.4 % (0-4); Hematocrit 43.8 % (42.0-52.0); Hemoglobin 15.3 g/dl (14.0-18.0); Imm Gran Abs Auto 0.03 X10*3/uL (0.00-0.03); Imm Gran Pct Auto 0.3 % (0.0-0.4); Lymphocytes Absolute Auto 2.7 X10*3/uL (1.2-4.9); Lymphocytes Percent Auto 30.5 % (20-40); Mean Corpuscular HGB Conc 34.9 g/dl (31.0-36.0); Mean Corpuscular Volume 91.6 fL (80.0-98.0); Mean Platelet Volume 9.7 fL (9.4-12.4); Monocytes Absolute Auto 0.6 X10*3/uL (0.1-1.2); Monocytes Percent Auto 6.8 % (2-11); Neutrophils Absolute Auto 5.3 x10*3/uL (2.0-8.3); Neutrophils Percent Auto 59.7 % (45-73); Platelet Count 224 X10*3/uL (160-400); Red Blood Count 4.78 X10*6/uL (4.60-5.80); Red Cell Distribution Width 12.6 % (11.0-16.0); White Blood Count 8.8 X10*3/uL (4.8-10.8)
[2023-11-05 00:22] LABS: Alanine Aminotransferase 37 U/L (0-40); Alkaline Phosphatase 83 U/L (39-117); Anion Gap 18 (12-20); Aspartate Amino Transferase 24 U/L (5-37); Bilirubin Total 0.2 mg/dL (0.0-1.0); Blood Urea Nitrogen 18 mg/dL (9-16); Calcium 9.5 mg/dL (8.4-10.2); Carbon Dioxide 19 mmol/L (22-29); Chloride 105 mmol/L (96-108); Creatinine Clr Calc Pharmacy 79.1; Estimated Glomerular Filt Rate 54; Glucose Random 150 mg/dL (60-115); Potassium 3.7 mmol/L (3.3-5.1); Sodium 138 mmol/L (135-145); Total Protein 7.6 g/dL (6.5-8.0); Uric Acid 8.9 mg/dL (3.4-7.0)
[2023-11-05 00:55] VITALS: BP 146/96; PULSE 82; RESP 16; TEMP 36.6; O2SAT 98
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
[2023-11-05 02:33] VITALS: BP 157/100; PULSE 77; RESP 16; TEMP 37.1; O2SAT 98
[2023-11-05] MEDS: oxyCODONE HCl Immed Release 5 MG TABLET PO (02:40)
[2023-11-05 02:45] VITALS: BP 157/100; PULSE 77; RESP 16; TEMP 37.1; O2SAT 98
== END 2023-11-05 02:46 | disposition home or self-care (01) ==
PROVIDERS: Emergency Provider Emergency Medicine
DX: M25.561 Pain in right knee (principal); M17.11 Unilateral primary osteoarthritis, right knee; M25.461 Effusion, right knee; S89.91XD Unspecified injury of right lower leg, subsequent encounter; X58.XXXD Exposure to other specified factors, subsequent encounter
CPT/HCPCS: 36415; 73560; 80053; 84550; 85025; 99283; 99284

== ENCOUNTER 2023-11-07 09:46 | Outpatient (REF) | payer MEDICAID, SELFPAY ==
--- NOTE | ~2023-11-07 | XR_ITS ---
EXAMINATION: XR KNEE, RIGHT CLINICAL INFORMATION: Right knee pain COMPARISON: 11/05/2023 TECHNIQUE: Three views of the right knee, including AP weightbearing bilateral, right Lateral and sunrise views. FINDINGS: There is minimal narrowing of medial compartment of right knee joint, no evidence of joint effusion or other evidence of osteoarthritis. XR/XR knee RT 3V IMPRESSION: Minimal narrowing cough medial compartment of left knee joint
== END 2023-11-07 09:47 | disposition home or self-care (01) ==
LOC: HO.HOSX 09:46
PROVIDERS: Visit Provider Physician Assistant
DX: M25.561 Pain in right knee (principal); M25.461 Effusion, right knee; M23.91 Unspecified internal derangement of right knee
CPT/HCPCS: 73562; 99212

== ENCOUNTER 2023-11-07 13:43 | Outpatient (AMB) | payer MEDICAID, SELFPAY ==
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
[2023-11-07 14:07] VITALS: BMI 33.0
== END 2023-11-07 15:03 | disposition home or self-care (01) ==
PROVIDERS: Visit Provider Physician Assistant
DX: M23.91 Unspecified internal derangement of right knee (principal)
CPT/HCPCS: 99203

== ENCOUNTER 2024-02-04 13:31 | Outpatient (AMB) | payer MEDICAID, SELFPAY ==
--- NOTE | 2024-02-04 13:18 | HO.NEPHOV_ITS ---
Vital Signs 02/04/24 13:33 02/04/24 13:50 Height 5 ft 10 in Weight 249 lb BMI 35.7 BP 172/110 H 154/104 H Blood Pressure Location Lt brachial Position Sitting Pulse 108 H Pulse Source Pulse Oximeter Pulse Oximetry (%) 95 Oxygen Delivery Method Room Air Intake Visit Reasons: CKD STG3A/ Conf [employer] Required: No Accompanied by: Self / Same As Patient Allergies No Known Allergies Allergy (Mild, Verified 02/04/24 13:35) NOT APPLICABLE Medication List - Last Reconciled 02/04/24 by Stephie Francis DNP, [employer] DES[employer]-BC albuterol sulfate 90 mcg/actuation 2 inhalations inhalation Q4-6H PRN hydrochlorothiazide 12.5 mg PO DAILY losartan 100 mg PO DAILY HPI Comments Details: Geraldo is a 48 y/o male with a medical history of polysubstance abuse, gouty arthritis of toe, HTN, SILVIA on CPAP, and stage 3a CKD. He was referred to nephrology by his PCP Dr Ashley Blake for management of CKD 3a. 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 smoking: cigarettes- right now 4/day. alcohol: on the weekends- 6-7 each day on weekends drug use: snorting cocaine in past. family hx: no family history of kidney disease. Mom has diabetes and dad has heart problems. medications: losartan 100mg daily, hydrochlorothiazide 12.5mg daily. Denies use of other prescription/OTC medications. diet, salt: lots of salt. sugars: trying to do better NSIADs/OTC medications: none shortness of breath: none Edema: none urinary sx: none rash: none joint pain: right knee pain [facility] Medical History (Updated 02/04/24 @ 13:59 by Stephie Francis DNP, RENY-BC) Acute kidney injury Chronic kidney disease, stage 3a Chronic pain of right knee SILVIA on CPAP Gouty arthritis of toe Chronic ankle pain Polysubstance abuse No pertinent past medical history Hypertension Social History Alcohol intake: current Alcohol type: beer Patient Tobacco Use Status: Current everyday Tobacco user Cigarettes Per Day: 2 Substance Use Type: Crack/Cocaine Current occupational status: unemployed Review of Systems Const Denies fatigue, Denies headache(s) and Denies malaise ENT Denies dizziness and Denies headache(s) Card Denies chest pain, Denies lightheadedness and Denies dyspnea Resp Denies cough and Denies dyspnea GI Denies abdominal pain, Denies diarrhea, Denies nausea and Denies vomiting Denies hematuria, Denies oliguria, Denies difficulty urinating and Denies dysuria Musc Reports arthralgias (right knee) Skin/Breast Denies rash Neuro Denies dizziness and Denies headache(s) Endo Denies fatigue Physical Exam Vital Signs: Last Vital Signs Pulse 108 H 02/04/24 13:33 BP 154/104 H 02/04/24 13:50 Pulse Ox 95 02/04/24 13:33 Oxygen Delivery Method Room Air 02/04/24 13:33 BMI result Body Mass Index 35.7 Const General: comfortable and no acute distress Neck Neck: Yes no JVD Resp Effort & Inspection: able to speak in complete sentences Auscultation: clear to auscultation bilaterally Cardio Jugular venous distension: no JVD Rate: regular rate Rhythm: regular rhythm Heart sounds: S1 normal heart sound present and S2 normal heart sound present GI Palpation (GI): Soft to palpation Rectal Exam - Male: No tenderness General: Yes no CVA tenderness Back/Spine/Pelvis Back: no CVA tenderness Skin Rashes: no rashes Extrem General: Yes normal to inspection, No edema and No pedal edema Results Reviewed Nephrology Results: Hgb 15.3 g/dl (14.0-18.0) 11/05/23 WBC 8.8 X10*3/uL (4.8-10.8) 11/05/23 Plt Count 224 X10*3/uL (160-400) 11/05/23 Sodium 138 mmol/L (135-145) 11/05/23 Potassium 3.7 mmol/L (3.3-5.1) 11/05/23 Chloride 105 mmol/L (96-108) 11/05/23 Carbon Dioxide 19 mmol/L (22-29) L 11/05/23 BUN 18 mg/dL (9-16) H 11/05/23 Creatinine 1.41 mg/dL (0.5-1.4) H 11/05/23 Calcium 9.5 mg/dL (8.4-10.2) 11/05/23 Urine Protein 100 MG/DL (NEG - TRACE) H 06/09/19 Assessment & Plan Assessment & Plan (1) Acute kidney injury: Code(s): N17.9 - Acute kidney failure, unspecified Category: Medical (2) Hypertension: Code(s): I10 - Essential (primary) hypertension Category: Medical Qualifiers: Hypertension type: primary hypertension Qualified Code(s): I10 - Essential (primary) hypertension Plan FREDDIE- creatinine bump in October, will get re-check BMP to follow up to assess if this is acute or chronic patient reports chronic poor water/fluid intake, in the setting of diuretic and ARB use this is most likely cuase of FREDDIE patient also heavy alcohol use and hx of cocaine abuse, uncontrolled HTN (though states today he did not take his medication) he will continue with losartan and hctz as prescribed, advised needs to improve oral hydration in order for these medications to be safe Blood pressure is subotpimally controlled, though may be due to missing dose today Advised needs to take before next appt for accurate assessment; if remains poorly controlled will consider adding amlodipine to regimen advised needs to cut down significantly on alcohol advised continue to work on smoking cessation advised continue to avoid NSAIDs Discussed importance of weight loss, pt is starting to work on this advised needs to reduce dietary salt intake, he agrees to work on this He will follow up in 2 weeks, he agrees to get blood and urine testing today, which we will review when he returns if CKD present, will consider renal imaging due to his history Discussed with Dr Guerrero Orders: Orders Basic Metabolic Panel Today N17.9 - Acute kidney failure, unspecified, N18.30 - Chronic kidney disease, stage 3 unspecified UA w Microscopic Today I10 - Essential (primary) hypertension, N17.9 - Acute kidney failure, unspecified Total Protein Urine Random Today N17.9 - Acute kidney failure, unspecified Creatinine Urine Today N17.9 - Acute kidney failure, unspecified Coding Level of Care Code New Pt Level 4 (65727) Diagnoses Acute kidney injury N17.9 Primary hypertension I10 Hypertension type: primary hypertension
[2024-02-04 13:33] VITALS: BP 172/110; PULSE 108; O2SAT 95; BMI 35.7
[2024-02-04 13:50] VITALS: BP 154/104
== END 2024-02-04 16:34 | disposition home or self-care (01) ==
PROVIDERS: PCP Internal Medicine; Referring Provider Internal Medicine; Visit Provider Internal Medicine Hypertension Specialist
DX: N17.9 Acute kidney failure, unspecified (principal); I10 Essential (primary) hypertension
CPT/HCPCS: 99204

== ENCOUNTER → 2024-02-04 13:31 | Outpatient (BNVA) | payer MEDICAID, SELFPAY | PROVIDERS: PCP Internal Medicine; Referring Provider Internal Medicine; Visit Provider Internal Medicine Hypertension Specialist | DX: I12.9 Hypertensive chronic kidney disease with stage 1 through stage 4 chronic kidney disease, or unspecified chronic kidney disease (principal); N18.31 Chronic kidney disease, stage 3a; G47.33 Obstructive sleep apnea (adult) (pediatric); N17.9 Acute kidney failure, unspecified; F17.210 Nicotine dependence, cigarettes, uncomplicated; Z99.89 Dependence on other enabling machines and devices | CPT/HCPCS: 99202 ==

== ENCOUNTER 2024-05-06 18:29 | Emergency (ER) | payer MEDICAID, SELFPAY ==
--- NOTE | ~2024-05-06 | XR_ITS ---
CLINICAL HISTORY: pain, no injury 3 view left ankle Comparison: None Findings: Small fragments about the medial malleolus appear old/chronic. Re-injury patella ptotic ligament is considered given diffuse soft tissue swelling. Large effusion present. Mild joint space narrowing and ventral distal tibial remodeling as can be seen with posttraumatic osteoarthritis. No dislocation. Also mild degenerative change of the imaged hindfoot and midfoot. No radiopaque retained foreign body. IMPRESSION: 1. Large effusion with soft tissue swelling. 2. 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 This document has been electronically signed by: Domingo Walker MD on 05/06/2024 19:47:33
[2024-05-06 19:01] VITALS: BP 173/117; PULSE 100; RESP 18; TEMP 36.6; O2SAT 97; BMI 35.3
--- NOTE | 2024-05-06 19:01 | ED.GENADULT ---
HPI - General Adult General Chief complaint: Extremity Injury, Lower Stated complaint: Lt Ankle no inj Time Seen by Provider: 05/06/24 22:30 History of Present Illness ED Provider: Nilesh SYEMOUR narrative: The patient is a 48-year-old male who says that he has been having problems with the pain in his left ankle intermittently for the last 3 weeks. He says he has been trying to get into see his piece not been able to do so. Finally he came to the emergency room. Pain has been considerably worse over the last few days. There has been no fever. Related Data Previous Rx's ?Medication ?Instructions ?Recorded albuterol sulfate 90 mcg/actuation 2 inh inhalation Q4-6H PRN 03/28/23 breath activated powder inhaler shortness of breath or wheezing #1 ea hydrochlorothiazide 12.5 mg tablet 12.5 mg PO DAILY #7 tabs 04/11/23 losartan 100 mg tablet 100 mg PO DAILY #7 tabs 04/11/23 acetaminophen 500 mg capsule 1,000 mg (2 x 500 mg) PO TID PRN 05/07/24 pain #20 caps morphine 15 mg immediate release 15 mg PO Q6H PRN pain #14 tabs 05/07/24 tablet prednisone 5 mg tablet 5 mg PO DIRECTED #66 tabs 05/07/24 Allergies Allergy/AdvReac Type Severity Reaction Status Date / Time No Known Allergies Allergy Mild NOT Verified 05/06/24 19:06 APPLICABLE Review of Systems Review of Systems: Yes all other systems are reviewed and are negative PMFSH Past Medical History Medical History (Updated 05/07/24 @ 00:02 by Peter Galloway MD) Acute kidney injury Chronic kidney disease, stage 3a Chronic pain of right knee SILVIA on CPAP Gouty arthritis of toe Chronic ankle pain Polysubstance abuse No pertinent past medical history Hypertension Social History Social History Alcohol intake: current Alcohol type: beer Patient Tobacco Use Status: Current everyday Tobacco user Cigarettes Per Day: 2 Substance Use Type: Crack/Cocaine Advance Directives: No Advance Directives Information Provided: Yes Do you have a plan to hurt others: No Plan Current occupational status: unemployed Physical Exam ED Vital Signs: Vital Signs - 24 hr 05/06/24 19:01 05/07/24 00:19 05/07/24 00:20 Temperature 97.9 F Pulse Rate 100 104 H 102 H Respiratory Rate 18 16 18 Blood Pressure 173/117 H 167/123 H 166/130 H Pulse Oximetry 97 Oxygen Delivery Method Room Air 05/07/24 00:25 Temperature 97.9 F Pulse Rate 102 H Respiratory Rate 18 Blood Pressure 166/130 H Pulse Oximetry 97 Oxygen Delivery Method Room Air BMI result Body Mass Index 35.3 Const Other: The patient is a 48-year-old male who was awake and alert with a normal mental status. At rest he does not seem in distress but he has obvious discomfort with any movement of his left foot or ankle HENMT Other: Face is symmetrical. Mucous membranes moist. Eyes Other: Pupils are round equal, conjunctivae clear, extraocular movements intact Neck Neck: Yes full ROM Resp Effort & Inspection: normal respiratory effort Auscultation: clear to auscultation bilaterally Cardio Rate: regular rate Rhythm: regular rhythm Heart sounds: S1 normal heart sound present, S2 normal heart sound present and Murmur heart sound present ( No murmur) Skin Other: there is some swelling to the general region of the left ankle. There is no erythema. Neuro Other: The patient is awake and alert with normal mental status. Cranial nerves are grossly intact. He has intact sensation and motor function in the left foot. Extrem Other: The left foot is neurovascularly intact. There is generalized tenderness around the left ankle. The patient can put the ankle through a small range of motion. The joint is not particularly warm. No erythema. There is quite a bit of tenderness however. Course Course Course Narrative: This is a rapid medical exam performed by Terri Gleason NP: Additional HPI, ROS, PE not included below will be deferred to primary provider. Patient is a 48-year-old male presenting to the ED with complaint of left ankle pain, reports history of gout, feels the same. Denies injury or other trauma. Plan: labs, xray Medications Administered Discontinued Medications Generic Name Dose Route Start Last Admin Trade Name Freq PRN Reason Stop Dose Admin Acetaminophen 975 mg 05/06/24 22:39 05/06/24 23:40 Acetaminophen 325 Mg Tablet PO 05/06/24 22:40 975 mg ONCE ONE Administration Ketorolac Tromethamine 30 mg 05/06/24 22:39 05/06/24 23:41 Ketorolac Tromethamine 30 Mg/Ml Vial IM 05/06/24 22:40 30 mg ONCE ONE Administration Morphine Sulfate 15 mg 05/06/24 22:39 05/06/24 23:40 Morphine Sulfate Immed Release 15 Mg Tablet PO 05/06/24 22:40 15 mg ONCE ONE Administration Prednisone 60 mg 05/06/24 22:39 05/06/24 23:39 Prednisone 20 Mg Tablet PO 05/06/24 22:40 60 mg ONCE ONE Administration Medical Decision Making Medical Decision Making [place] Narrative: The patient is a 48-year-old male who has a history of a previous episode of gout in his toe. He presents with 3 weeks of worsening but somewhat waxing and waning pain in his left ankle. He has not had a fever. The ankle is not red. He can move the ankle slightly. The ankle is not completely a mobile with pain. An x-ray suggests a joint effusion. The radiologist also comments on possible posttraumatic changes but the patient denied having had any significant previous left ankle fracture although he has had surgery on his right ankle for a fracture he said. The patient is afebrile and has a normal white count and differential. My suspicion for a septic joint in this case would be quite low. I suspect this is probably a gout-like inflammatory event. The patient will be placed on a course of prednisone. He will be given morphine tablets for pain. He was given crutches to help keep the weight off the ankle. He is advised follow-up with his PCP at the [facility] and also to see loading machine adjuster. Lab Data 05/06/24 19:20 05/06/24 19:20 Labs: Lab Results 05/06/24 Range/Units 19:20 WBC 10.0 (4.8-10.8) X10*3/uL RBC 4.86 (4.60-5.80) X10*6/uL Hgb 15.4 (14.0-18.0) g/dl Hct 44.8 (42.0-52.0) % MCV 92.2 (80.0-98.0) fL MCH 31.7 (27.0-33.0) pg MCHC 34.4 (31.0-36.0) g/dl RDW 12.1 (11.0-16.0) % Plt Count 258 (160-400) X10*3/uL MPV 9.3 L (9.4-12.4) fL Immature Gran % (Auto) 0.3 (0.0-0.4) % Neut % (Auto) 67.9 (45-73) % Lymph % (Auto) 22.3 (20-40) % [place] % (Auto) 6.6 (2-11) % Eos % (Auto) 2.6 (0-4) % Baso % (Auto) 0.3 (0-2) % Lymph # (Auto) 2.2 (1.2-4.9) X10*3/uL [place] # (Auto) 0.7 (0.1-1.2) X10*3/uL Eos # (Auto) 0.3 (0.0-0.4) X10*3/uL Baso # (Auto) 0.0 (0.0-0.2) X10*3/uL Abs Immat Gran (auto) 0.03 (0.00-0.03) X10*3/uL Absolute Neuts (auto) 6.8 (2.0-8.3) x10*3/uL Absolute Nucleated RBC 0.000 (0.0-0.012) X10*3/uL Nucleated RBC % (auto) 0.0 (0.0-0.2) /100WBC ESR 33 H (0-15) MM/HR Sodium 139 (135-145) mmol/L Potassium 4.4 (3.3-5.1) mmol/L Chloride 109 H (96-108) mmol/L Carbon Dioxide 24 (22-29) mmol/L Anion Gap 10 L (12-20) BUN 13 (9-16) mg/dL Creatinine 0.86 (0.5-1.4) mg/dL Estim Creat Clear Calc 134.2 Estimated GFR > 60 Random Glucose 149 H (60-115) mg/dL Uric Acid 6.5 (3.4-7.0) mg/dL Calcium 9.6 (8.4-10.2) mg/dL Total Bilirubin 0.3 (0.0-1.0) mg/dL AST 38 H (5-37) U/L ALT 54 H (0-40) U/L Alkaline Phosphatase 81 (39-117) U/L C-Reactive Protein 1.59 H (< or = 0.50) mg/dL Total Protein 7.8 (6.5-8.0) g/dL Albumin 3.9 (3.5-5.0) g/dL Discharge Plan Discharge Clinical Impression: Acute gout of left ankle Patient Disposition: Home, Self-Care Instructions: Gout (ED) Additional Instructions: I believe that you are experiencing an episode of gout in your left ankle. Please try to stay off the foot as much as possible. Use the crutches to keep weight off the foot. Elevate the foot often. Please take the prednisone as prescribed. This has been prescribed as a tapering dose. You will take 11 tablets tomorrow, then 10 tablets the next day, and 1 less per day until done. You may use acetaminophen (Tylenol) as needed for pain up to 3 times a day. I have sent a prescription for this medication as well. Also you may use the morphine tablets as needed for pain. Please make a prompt follow up appointment with your regular doctor at the [facility]. I think it would also be good for you to see a loading machine adjuster to discuss this problem. Return to the emergency room if significantly worse. Prescriptions: New morphine 15 mg tablet 15 mg PO Q6H PRN (Reason: pain) Qty: 14 0RF Rx Instructions: Partial Fill upon patient request. prednisone 5 mg tablet 5 mg PO DIRECTED Qty: 66 0RF Rx Instructions: see taper instructions acetaminophen 500 mg capsule 1,000 mg PO TID PRN (Reason: pain) Qty: 20 0RF No Action albuterol sulfate 90 mcg/actuation aerosol powdr breath activated 2 inh inhalation Q4-6H PRN (Reason: shortness of breath or wheezing) Qty: 1 0RF losartan 100 mg tablet 100 mg PO DAILY Qty: 7 0RF hydrochlorothiazide 12.5 mg tablet 12.5 mg PO DAILY Qty: 7 0RF Referrals: [facility] [place] Rheumatology Service [Provider Group] (gout, arthritis) Ashley Stewart MD [Primary Care Provider] - (left ankle gout) Interventions: ED Discharge Assessment Last Done: 05/07/24 00:25 Discharge Date/Time: 05/07/24 00:26 Print Language: Portuguese
[2024-05-06 19:23] LABS: MANUAL DIFF FLAG NO
[2024-05-06 19:25] LABS: Basophils Percent Auto 0.3 % (0-2); Eosinophils Absolute Auto 0.3 X10*3/uL (0.0-0.4); Eosinophils Percent Auto 2.6 % (0-4); Hematocrit 44.8 % (42.0-52.0); Hemoglobin 15.4 g/dl (14.0-18.0); Imm Gran Abs Auto 0.03 X10*3/uL (0.00-0.03); Imm Gran Pct Auto 0.3 % (0.0-0.4); Lymphocytes Absolute Auto 2.2 X10*3/uL (1.2-4.9); Lymphocytes Percent Auto 22.3 % (20-40); Mean Corpuscular HGB Conc 34.4 g/dl (31.0-36.0); Mean Corpuscular Hemoglobin 31.7 pg (27.0-33.0); Mean Corpuscular Volume 92.2 fL (80.0-98.0); Mean Platelet Volume 9.3 fL (9.4-12.4); Monocytes Absolute Auto 0.7 X10*3/uL (0.1-1.2); Monocytes Percent Auto 6.6 % (2-11); Neutrophils Absolute Auto 6.8 x10*3/uL (2.0-8.3); Neutrophils Percent Auto 67.9 % (45-73); Platelet Count 258 X10*3/uL (160-400); Red Blood Count 4.86 X10*6/uL (4.60-5.80); Red Cell Distribution Width 12.1 % (11.0-16.0)
[2024-05-06 19:38] LABS: Alanine Aminotransferase 54 U/L (0-40); Albumin Level 3.9 g/dL (3.5-5.0); Alkaline Phosphatase 81 U/L (39-117); Anion Gap 10 (12-20); Aspartate Amino Transferase 38 U/L (5-37); Bilirubin Total 0.3 mg/dL (0.0-1.0); Blood Urea Nitrogen 13 mg/dL (9-16); C Reactive Protein 1.59 mg/dL (< or = 0.50); Calcium 9.6 mg/dL (8.4-10.2); Carbon Dioxide 24 mmol/L (22-29); Chloride 109 mmol/L (96-108); Creatinine Clr Calc Pharmacy 134.2; Estimated Glomerular Filt Rate > 60; Glucose Random 149 mg/dL (60-115); Potassium 4.4 mmol/L (3.3-5.1); Sodium 139 mmol/L (135-145); Total Protein 7.8 g/dL (6.5-8.0); Uric Acid 6.5 mg/dL (3.4-7.0)
[2024-05-06 20:07] LABS: Erythrocyte Sedimentation Rate 33 MM/HR (0-15)
[2024-05-06] MEDS: predniSONE 20 MG TABLET 60 MG PO (23:39)
[2024-05-06] MEDS: Morphine Sulfate Immed Release 15 MG TABLET PO (23:40)
[2024-05-06] MEDS: Acetaminophen 325 MG TABLET 975 MG PO (23:40)
[2024-05-06] MEDS: Ketorolac Tromethamine 30 MG/ML VIAL IM (23:41)
[2024-05-07 00:19] VITALS: BP 167/123; PULSE 104; RESP 16
[2024-05-07 00:20] VITALS: BP 166/130; PULSE 102; RESP 18
--- NOTE | 2024-05-07 00:22 | PC.NURSE ---
MD rubin aware of pt BP's at time of discharge. pt says he forgot to take his BP med and will take it when he gets home Md jordan
[2024-05-07 00:25] VITALS: BP 166/130; PULSE 102; RESP 18; TEMP 36.6; O2SAT 97
== END 2024-05-07 00:26 | disposition home or self-care (01) ==
PROVIDERS: Registered Nurse Emergency; Emergency Provider Emergency Medicine; PCP Internal Medicine
DX: M10.9 Gout, unspecified (principal); M25.472 Effusion, left ankle; M25.572 Pain in left ankle and joints of left foot; I10 Essential (primary) hypertension; F17.210 Nicotine dependence, cigarettes, uncomplicated; Z79.899 Other long term (current) drug therapy
CPT/HCPCS: 36415; 73600; 80053; 84550; 85025; 85652; 86140; 96372; 99283; 99284; J1885

== ENCOUNTER → 2024-05-06 19:02 | Outpatient (BNV) | payer MEDICAID, SELFPAY | PROVIDERS: PCP Internal Medicine; Visit Provider Radiology Neuroradiology | DX: M25.471 Effusion, right ankle (principal); M79.89 Other specified soft tissue disorders; M25.872 Other specified joint disorders, left ankle and foot | CPT/HCPCS: 73600 ==

== ENCOUNTER 2024-11-22 05:19 | Emergency (ER) | payer MEDICAID, SELFPAY ==
--- NOTE | ~2024-11-22 | XR_ITS ---
CLINICAL HISTORY: pain 3 view right ankle Comparison: 11/29/2021 Findings: No significant change in appearance or alignment of distal tibia fibula and anterior hindfoot hardware without complications. Posterior tibial soft tissue swelling was also seen on an earlier 02/03/2018 radiograph. 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 Osseous fusion of the distal tibiofibular syndesmosis and relatively prominent spurring in the neighboring distal syndesmotic membrane. Normal alignment without acute fracture. Mild posterior subtalar osteoarthritis. Small ankle joint effusion. Small posterior calcaneal spurs. Mild heterotopic ossification/dystrophic calcification of the plantar soft tissues at level of the [place] joints. IMPRESSION: 1. No acute fracture This document has been electronically signed by: Claudette James MD on 11/22/2024 09:52:34
[2024-11-22 05:25] VITALS: BP 180/111; PULSE 103; RESP 16; TEMP 36.9; O2SAT 98; BMI 34.7
--- NOTE | 2024-11-22 07:39 | ED.EXTPRO ---
HPI - Extremity Problem General Chief complaint: Extremity Problem Stated complaint: Leg Pain Time Seen by Provider: 11/22/24 07:33 Source: patient Mode of arrival: ambulatory Limitations: no limitations History of Present Illness HPI Narrative: This is a 49 years old male presented to the emergency department complaining of right ankle pain he stated that he has a history of gout in the pain feels rice gout. No reported trauma no reported fever he has a history also of hypertension. MD Complaint: extremity pain and extremity swelling Onset (ago): day(s) (5) Pain Consistency: constant Location: left Severity scale (1-10): 5 Quality: burning Radiation: none Relieving factors: nothing Exacerbating factors: nothing Associated symptoms: denies other symptoms Related Data Previous Rx's ?Medication ?Instructions ?Recorded albuterol sulfate 90 mcg/actuation 2 inh inhalation Q4-6H PRN 03/28/23 breath activated powder inhaler shortness of breath or wheezing #1 ea hydrochlorothiazide 12.5 mg tablet 12.5 mg PO DAILY #7 tabs 04/11/23 losartan 100 mg tablet 100 mg PO DAILY #7 tabs 04/11/23 acetaminophen 500 mg capsule 1,000 mg (2 x 500 mg) PO TID PRN 05/07/24 pain #20 caps morphine 15 mg immediate release 15 mg PO Q6H PRN pain #14 tabs 05/07/24 tablet prednisone 5 mg tablet 5 mg PO DIRECTED #66 tabs 05/07/24 colchicine 0.6 mg capsule 0.6 mg PO DAILY #7 caps 11/22/24 naproxen 500 mg tablet (Naprosyn) 500 mg PO BID PRN PAIN #20 tabs 11/22/24 Allergies Allergy/AdvReac Type Severity Reaction Status Date / Time No Known Allergies Allergy Mild NOT Verified 11/22/24 05:33 APPLICABLE Review of Systems Constitutional: Constitutional: Reports no additional constitutional complaints ENT: Reports system reviewed and no additional complaints, except as documented Gastrointestinal: Gastrointestinal: Reports no additional gastrointestinal complaints [facility] Past Medical History [facility] Narrative: Gout/hypertension/polysubstance abuse Medical History Acute kidney injury Chronic kidney disease, stage 3a Chronic pain of right knee SILVIA on CPAP Gouty arthritis of toe Chronic ankle pain Polysubstance abuse No pertinent past medical history Hypertension Social History Social History Alcohol intake: current Alcohol intake frequency: holidays/special occasions only Alcohol type: beer Patient Tobacco Use Status: Current everyday Tobacco user Cigarettes Per Day: 2 Smoked in Last 30 Days: Yes Use of substances other than those prescribed or required for medical reasons: No Substance Use Type: Crack/Cocaine Advance Directives: No Advance Directives Information Provided: Yes Current occupational status: unemployed Physical Exam Exam: Exam: No acute distress Vital Signs: Vital Signs: Last Vital Signs Temp 0 F L 11/22/24 09:43 Pulse 0 L 11/22/24 09:43 Resp 0 L 11/22/24 09:43 BP 00/00 L 11/22/24 09:43 Pulse Ox 0 L 11/22/24 09:43 O2 Del Method Room Air 11/22/24 05:25 BMI result Body Mass Index 34.7 Const: General: cooperative Nutritional Appearance: well nourished Orientation/consciousness: patient oriented x3 HEENT: Head: Yes normal to inspection Face and sinus: Yes normal facial exam Mouth: Normal oral and palatal mucosa present Throat: Yes posterior oropharynx normal Neck: Neck: Yes normal visual inspection Chest: Chest palpation & inspection: normal inspection of the chest Resp: Effort & Inspection: normal respiratory effort Auscultation: clear to auscultation bilaterally Cardio: Jugular venous distension: no JVD Rate: regular rate Rhythm: regular rhythm GI: Inspection: Yes normal to inspection Palpation (GI): Soft to palpation, not firm and nontender Neuro: General: patient oriented x3 Extrem: Other: right ankle examination shows swelling tenderness decreased range of motion Course Reevaluation(s) Reevaluation #1: Feels much better anticipate discharge Time: 09:11 Medications Administered Discontinued Medications Generic Name Dose Route Start Last Admin Trade Name Freq PRN Reason Stop Dose Admin Colchicine 1.2 mg 11/22/24 07:37 11/22/24 09:42 Colchicine 0.6 Mg Tablet PO 11/22/24 07:38 Not Given ONCE ONE Ibuprofen 800 mg 11/22/24 07:38 11/22/24 07:51 Ibuprofen 800 Mg Tablet PO 11/22/24 07:39 800 mg ONCE ONE Administration Prednisone 60 mg 11/22/24 07:38 11/22/24 07:51 Prednisone 20 Mg Tablet PO 11/22/24 07:39 60 mg ONCE ONE Administration Medical Decision Making Medical Decision Making [facility] Narrative: Patient presented complaining of right ankle pain stating that he has a history of gout feels like gout. Differential Diagnosis Differential Diagnoses: The differential diagnosis associated with the presentation includes Gout/arthritis/chronic ankle pain Admission/Observation Consideration of admission/observation: Escalation of care including admission/observation considered Lab Data [facility] Lab Attestation statement: I reviewed the patient's lab results. 11/22/24 08:28 11/22/24 08:28 Labs: Lab Results 11/22/24 Range/Units 08:28 WBC 11.9 H (4.8-10.8) X10*3/uL RBC 5.29 (4.60-5.80) X10*6/uL Hgb 16.4 (14.0-18.0) g/dl Hct 48.7 (42.0-52.0) % MCV 92.1 (80.0-98.0) fL MCH 31.0 (27.0-33.0) pg MCHC 33.7 (31.0-36.0) g/dl RDW 12.7 (11.0-16.0) % Plt Count 308 (160-400) X10*3/uL MPV 9.3 L (9.4-12.4) fL Immature Gran % (Auto) 0.5 H (0.0-0.4) % Neut % (Auto) 60.4 (45-73) % Lymph % (Auto) 29.6 (20-40) % [place] % (Auto) 7.0 (2-11) % Eos % (Auto) 2.2 (0-4) % Baso % (Auto) 0.3 (0-2) % Lymph # (Auto) 3.5 (1.2-4.9) X10*3/uL [place] # (Auto) 0.8 (0.1-1.2) X10*3/uL Eos # (Auto) 0.3 (0.0-0.4) X10*3/uL Baso # (Auto) 0.0 (0.0-0.2) X10*3/uL Abs Immat Gran (auto) 0.06 H (0.00-0.03) X10*3/uL Absolute Neuts (auto) 7.2 (2.0-8.3) x10*3/uL Absolute Nucleated RBC 0.000 (0.0-0.012) X10*3/uL Nucleated RBC % (auto) 0.0 (0.0-0.2) /100WBC ESR 49 H (0-15) MM/HR Sodium 138 (135-145) mmol/L Potassium 3.9 (3.3-5.1) mmol/L Chloride 103 (96-108) mmol/L Carbon Dioxide 25 (22-29) mmol/L Anion Gap 14 (12-20) BUN 14 (9-16) mg/dL Creatinine 0.95 (0.5-1.4) mg/dL Estim Creat Clear Calc 119.2 Estimated GFR > 60 Random Glucose 85 (60-115) mg/dL Calcium 9.3 (8.4-10.2) mg/dL Total Bilirubin 0.4 (0.0-1.0) mg/dL AST 50 H (5-37) U/L ALT 69 H (0-40) U/L Alkaline Phosphatase 72 (39-117) U/L Total Protein 8.0 (6.5-8.0) g/dL Albumin 4.3 (3.5-5.0) g/dL Independent Interpretation I performed an independent interpretation of an: Plain X-Ray Interpretation: I personally reviewed the x-ray of the ankle he has a prior ORIF plate but no acute fracture External Record Review External record reviewed: Inpatient record Discharge Plan Discharge Clinical Impression: Gout attack Patient Disposition: Home, Self-Care Instructions: Gout (ED) Additional Instructions: Please follow-up with your primary care physician return to the emergency room if you worse we sent a prescription for you to [facility] Prescriptions: New colchicine 0.6 mg capsule 0.6 mg PO DAILY Qty: 7 0RF naproxen [Naprosyn] 500 mg tablet 500 mg PO BID PRN (Reason: PAIN) Qty: 20 0RF No Action albuterol sulfate 90 mcg/actuation aerosol powdr breath activated 2 inh inhalation Q4-6H PRN (Reason: shortness of breath or wheezing) Qty: 1 0RF losartan 100 mg tablet 100 mg PO DAILY Qty: 7 0RF hydrochlorothiazide 12.5 mg tablet 12.5 mg PO DAILY Qty: 7 0RF morphine 15 mg tablet 15 mg PO Q6H PRN (Reason: pain) Qty: 14 0RF Rx Instructions: Partial Fill upon patient request. prednisone 5 mg tablet 5 mg PO DIRECTED Qty: 66 0RF Rx Instructions: see taper instructions acetaminophen 500 mg capsule 1,000 mg PO TID PRN (Reason: pain) Qty: 20 0RF Interventions: ED Discharge Assessment Last Done: 11/22/24 09:43 Discharge Date/Time: 11/22/24 09:43 Print Language: Nepalese
[2024-11-22 08:32] LABS: MANUAL DIFF FLAG NO
[2024-11-22 08:35] LABS: Hematocrit 48.7 % (42.0-52.0); Hemoglobin 16.4 g/dl (14.0-18.0); Imm Gran Abs Auto 0.06 X10*3/uL (0.00-0.03); Imm Gran Pct Auto 0.5 % (0.0-0.4); Lymphocytes Absolute Auto 3.5 X10*3/uL (1.2-4.9); Mean Corpuscular HGB Conc 33.7 g/dl (31.0-36.0); Mean Corpuscular Hemoglobin 31.0 pg (27.0-33.0); Mean Corpuscular Volume 92.1 fL (80.0-98.0); NRBC Abs Auto 0.000 X10*3/uL (0.0-0.012); NRBC Pct Auto 0.0 /100WBC (0.0-0.2); Platelet Count 308 X10*3/uL (160-400); Red Blood Count 5.29 X10*6/uL (4.60-5.80); White Blood Count 11.9 X10*3/uL (4.8-10.8)
--- NOTE | 2024-11-22 08:41 | PC.NURSE ---
0745: Pharmacy contacted for Colchicine order as pyxis has no stock. Awaiting delivery of medication for administration. 0817: Pharmacy contacts this RN that d/t technical issues, they are unable to print medication labels tat this time and will deliver Colchicine once issue has been resolved.
[2024-11-22 08:50] LABS: Alanine Aminotransferase 69 U/L (0-40); Albumin Level 4.3 g/dL (3.5-5.0); Alkaline Phosphatase 72 U/L (39-117); Anion Gap 14 (12-20); Aspartate Amino Transferase 50 U/L (5-37); Blood Urea Nitrogen 14 mg/dL (9-16); Calcium 9.3 mg/dL (8.4-10.2); Carbon Dioxide 25 mmol/L (22-29); Chloride 103 mmol/L (96-108); Creatinine Clr Calc Pharmacy 119.2; Estimated Glomerular Filt Rate > 60; Potassium 3.9 mmol/L (3.3-5.1); Sodium 138 mmol/L (135-145); Total Protein 8.0 g/dL (6.5-8.0)
--- NOTE | 2024-11-22 09:41 | PC.NURSE ---
Pt up for d/c and wishes to leave. Pt still in need of Colchicine but does not wish to wait. Dr. Kaur made aware and approves Pt departure.
[2024-11-22 09:43] VITALS: BP 00/00; PULSE 0; RESP 0; TEMP -17.7; TEMP 0; O2SAT 0
== END 2024-11-22 09:43 | disposition home or self-care (01) ==
PROVIDERS: Emergency Provider Emergency Medicine
DX: M10.071 Idiopathic gout, right ankle and foot (principal); Z79.899 Other long term (current) drug therapy
CPT/HCPCS: 36415; 73610; 80053; 85025; 85652; 99283; 99284

== ENCOUNTER → 2024-11-22 07:38 | Outpatient (BNV) | payer MEDICAID, SELFPAY | PROVIDERS: Emergency Provider Emergency Medicine; Visit Provider Radiology Diagnostic Radiology | DX: M25.471 Effusion, right ankle (principal) | CPT/HCPCS: 73610 ==